=== PATIENT | male | born 1950 | race Asian ===

== ENCOUNTER 2017-04-12 13:09 | Emergency (ER) | payer OTHER ==
[2017-04-12 13:24] VITALS: BP 123/69
--- NOTE | 2017-04-12 14:26 | UC ---
Neck Pain HPI - HPI Summary HPI Summary: 3 DAYS OF RIGHT SHOULDER/NECK PAIN AND STIFFNESS. DENIES ANY TRAUMA OR INJURY. NO NUMBNESS, TINGLING OR WEAKNESS. NO CHEST PAIN, SHORTNESS OF BREATH, NAUSEA, FEVER OR SWEATS. - History of Current Complaint Chief Complaint: UCBackPain Stated Complaint: STIFF NECK, AND SORE SHOULDERS Time Seen by Provider: 04/12/17 13:47 Hx Obtained From: Patient Mechanism Of Injury: No Known Trauma Timing: Constant Onset/Duration: Gradual Onset, Still Present Severity: Mild Pain Intensity: 2 Pain Scale Used: 0-10 Numeric Location: Discrete At: - RIGHT SHOULDER Character: Aching Aggravating Factors: Movement Alleviating Factors: Position Associated Signs & Symptoms: Negative: Swelling, Redness, Bruising, Fever, Nuchal Rigity, Weakness, Headache, Paresthesia - Allergies/Home Medications Allergies/Adverse Reactions: Allergies Allergy/AdvReac Type Severity Reaction Status Date / Time aspirin AdvReac Nausea Verified 04/12/17 13:14 Home Medications: Home Medications Acetaminophen [Tylophen] 1 tab PO Q6HR PRN 04/12/17 [History Confirmed 04/12/17] Atorvastatin* [Lipitor 40 MG*] 1 tab PO DAILY 04/12/17 [History Confirmed ] Cholecalciferol TAB* [Vitamin D TAB*] 1 tab PO DAILY 04/12/17 [History Confirmed 04/12/17] Vitamin B Complex CAP* [B Complex CAP*] 1 tab PO DAILY 04/12/17 [History Confirmed 04/12/17] PMH/Surg Hx/FS Hx/Imm Hx Endocrine History: Dyslipidemia Other Neurological History: SCIATICA - Surgical History Surgical History: Yes Surgery Procedure, Year, and Place: Lithotripsy - Family History Known Family History: Negative: Hypertension - Social History Alcohol Use: Daily Alcohol Amount: 1 glass wine Substance Use Type: None Smoking Status (MU): Smoker, Current Status Unknown Amount Used/How Often: Varies 2-3cig/some days none Review Of Systems Constitutional: Positive: Negative Skin: Positive: Negative Respiratory: Positive: Negative Cardiovascular: Positive: Negative Gastrointestinal: Positive: Negative Musculoskeletal: Positive: Myalgia All Other Systems Reviewed And Are Negative: Yes Physical Exam Triage Information Reviewed: Yes Appearance: Well-Appearing, No Pain Distress, Well-Nourished Vital Signs: Initial Vital Signs Temp 97.8 F 04/12/17 13:17 Pulse 73 04/12/17 13:17 Resp 16 04/12/17 13:17 BP 123/69 04/12/17 13:17 Pulse Ox 97 04/12/17 13:17 Vital Signs Reviewed: Yes Eyes: Positive: Conjunctiva Clear ENT: Positive: Hearing grossly normal Neck: Positive: Supple, Nontender, No Lymphadenopathy Respiratory: Positive: No respiratory distress, No accessory muscle use Cardiovascular: Positive: Pulses Normal Abdomen Description: Positive: Soft Musculoskeletal: Positive: ROM Intact, No Edema, Other: - NOT TENDER OVER ANY BONY PROMINENCES OR SOFT TISSUES OF THE RIGHT SHOULDER. SPECIAL TESTING FOR ROTATOR CUFF NEGATIVE. Neurological: Positive: Alert Psychological: Positive: Age Appropriate Behavior Skin: Negative: rashes Diagnostics - EKG Cardiac Rate: NL Cardiac Rhythm: Sinus: Normal Ectopy: None ST Segment: Normal Neck Pain Course/Dx - Course Course Of Treatment: PT HAS FULL ROM AND PAIN CAN NOT BE ELICITED WITH PALPATION. NO SWELLING, BRUISING OR H/O TRAUMA. NO NUMBNESS OR TINGLING. NO INDICATION FOR XRAY TODAY AND PT IS IN AGREEMENT WITH THIS. EKG UNREMARKABLE. LOW SUSPICION FOR CARDIAC ETIOLOGY. LIKELY MUSCLE STRAIN. WILL TREAT SUCH. SEEK F/U IF NOT IMPROVING. - Differential Dx/Diagnosis Provider Diagnoses: ACUTE MUSCLE STRAIN Discharge - Discharge Plan Condition: Stable Disposition: HOME Prescriptions: Cyclobenzaprine TAB* [Flexeril TAB*] 10 mg PO BID PRN #30 tab PRN Reason: Pain Naproxen [Naproxen EC] 500 mg PO BID PRN #30 tab PRN Reason: Pain Patient Education Materials: Muscle Strain (ED) Referrals: Elsa Peña MD [Primary Care Provider] - If Needed Additional Instructions: BE SURE TO GO THROUGH SLOW RANGE OF MOTION AND STRETCHING EXERCISES DAILY YOU ARE ABLE TO PREVENT STIFFENING UP AND MAKING THE DISCOMFORT WORSE. SEEK FOLLOW-UP WITH YOUR PCP IF YOU DO NOT IMPROVE EXPECTED. GO TO ER WITHOUT FAIL IF YOU DEVELOP CHEST PAIN, SHORTNESS OF BREATH, NAUSEA, SWEATS, DIZZINESS OR ANY OTHER CONCERNING SYMPTOMS.
== END 2017-04-12 14:24 | disposition home or self-care (01) ==
LOC: UCEAST 13:09
DX: S46.911A Strain of unspecified muscle, fascia and tendon at shoulder and upper arm level, right arm, initial encounter (principal); X58.XXXA Exposure to other specified factors, initial encounter; Y93.9 Activity, unspecified; Y92.9 Unspecified place or not applicable; Z88.6 Allergy status to analgesic agent; E78.5 Hyperlipidemia, unspecified; Z72.0 Tobacco use
CPT/HCPCS: 93005; 99211; G0463

== ENCOUNTER 2020-12-16 13:11 | Observation (INO) ==
[~2020-12-16 13:11] MED LIST: Buffered Lidocaine 1% SYRIN 1 ml INTRADERM ONE; Lactated Ringers 1000 ml BAG 1,000 ML IV SCH
[2020-12-16] MEDS ORDERED: ceFAZolin 2 GM in NS PREMIX 2 GM/100 ML BAG IVPB ONE (13:58)
[2020-12-16] MEDS ORDERED: Lidocaine 2% PF 5 ML VIAL ONE (15:33)
[2020-12-16] MEDS ORDERED: Propofol 10 MG/ML 20 ML BTL ONE ×3 (15:33→17:31)
[2020-12-16] MEDS ORDERED: HYDROmorphone 1 MG/1 ML SYRINGE ONE (15:33)
[2020-12-16] MEDS ORDERED: Rocuronium 50 mg VIAL 10 mg/ml 5 ml VIAL (50 mg) ONE ×2 (15:34→18:11)
[2020-12-16] MEDS ORDERED: Sevoflurane BOTTLE ONE (17:16)
[2020-12-16] MEDS ORDERED: Ondansetron 4 mg VIAL 2 MG/ML 2 ml VIAL IV PRN ×2 (18:43→19:49)
[2020-12-16] MEDS ORDERED: HYDROmorphone 1 MG/1 ML SYRINGE IV PRN (18:43)
[2020-12-16] MEDS ORDERED: fentaNYL 100 mcg/2 ml 50 MCG/ML VIAL IV PRN (18:43)
[2020-12-16] MEDS ORDERED: Naloxone 0.4 mg VIAL 0.4 mg/ml 1 ml VIAL IV PRN (18:43)
[2020-12-16] MEDS ORDERED: DiMENhydriNATE IV 50 mg/ml 1 ml VIAL IV PUSH PRN (18:43)
[2020-12-16] MEDS ORDERED: Acetaminophen IV 1 GM/100ML 100 ML IV ONE (19:05)
[2020-12-16] MEDS ORDERED: HYDROcodone/ACETAMIN 5/325 mg TAB PO PRN ×2 (19:49)
[2020-12-16] MEDS ORDERED: HYDROcodone/ACETAMIN 5/325 mg TAB ONE (20:12)
[2020-12-17] MEDS ORDERED: NS 0.9% 500 ml BAG 500 ML IV ONE ×2 (04:21→11:10)
[2020-12-17 11:57] LABS: Albumin 3.6 g/dL (3.2-5.2); Albumin/Globulin Ratio 1.3 (1-3); Calcium 8.6 mg/dL (8.6-10.3); Globulin 2.7 g/dL (2-4); Potassium 3.9 mmol/L (3.5-5.0); Total Bilirubin 0.5 mg/dL (0.2-1.0); Total Protein 6.3 g/dL (6.4-8.9)
[2020-12-17 12:11] LABS: ABS Basophils 0.1 10^3/ul (0-0.2); ABS Lymphocytes 1.8 10^3/ul (1.0-4.8); ABS Monocytes 1.3 10^3/ul (0-0.8); ABS Neutrophils 13.4 10^3/ul (1.5-7.7); Hematocrit 35 % (42-52); Hemoglobin 11.9 g/dL (14.0-18.0); Mean Corpuscular HGB Conc 34 g/dL (31-36); Mean Corpuscular Hemoglobin 30 pg (27-31); Mean Corpuscular Volume 90 fL (80-94); Mean Platelet Volume 8.3 fL (7.4-10.4); Platelet Count 204 10^3/uL (150-450); Red Blood Count 3.91 10^6 /uL (4.18-5.48); Red Cell Distribution Width 13 % (10-15); White Blood Count 16.6 10^3/uL (3.5-10.8)
[2020-12-17] MEDS: HYDROcodone/ACETAMIN 5/325 mg TAB PO PRN ×2 (16:06→20:38)
[2020-12-18] MEDS: HYDROcodone/ACETAMIN 5/325 mg TAB PO PRN ×2 (01:31→08:46)
[2020-12-18 11:30] LABS: ABS Basophils 0.1 10^3/ul (0-0.2); ABS Eosinophils 0.1 10^3/ul (0-0.6); ABS Lymphocytes 2.8 10^3/ul (1.0-4.8); ABS Monocytes 1.4 10^3/ul (0-0.8); ABS Neutrophils 8.1 10^3/ul (1.5-7.7); Eosinophil % 0.7 %; Hematocrit 36 % (42-52); Lymphocyte % 22.5 %; Mean Corpuscular HGB Conc 34 g/dL (31-36); Mean Corpuscular Hemoglobin 31 pg (27-31); Mean Corpuscular Volume 91 fL (80-94); Mean Platelet Volume 8.3 fL (7.4-10.4); Platelet Count 193 10^3/uL (150-450); Red Blood Count 3.94 10^6 /uL (4.18-5.48); Red Cell Distribution Width 13 % (10-15); White Blood Count 12.4 10^3/uL (3.5-10.8)
[2020-12-18] MEDS: oxyCODONE/Acetamin 5/325 mg TAB PO PRN ×2 (14:12→19:44)
[2020-12-19] MEDS: oxyCODONE/Acetamin 5/325 mg TAB PO PRN ×4 (01:12→20:14)
[2020-12-20] MEDS: oxyCODONE/Acetamin 5/325 mg TAB PO PRN ×3 (01:57→13:26)
[2020-12-20 11:48] VITALS: BP 98/62
== END 2020-12-20 13:40 | disposition home or self-care (01) ==
LOC: SSU 13:11 → OR 13:11
PROVIDERS: ADMIT Neurological Surgery; ATTEND Neurological Surgery